=== PATIENT | female | born 1995 | race Caucasian/White ===

== ENCOUNTER 2017-11-24 22:55 | Emergency (ER) | payer MEDICAID ==
[2017-11-24 23:04] VITALS: RESP 16; TEMP 98.1; O2SAT 94
--- NOTE | 2017-11-24 23:05 | EDPHY ---
H & P Stated Complaint: L 5TH DIGIT LAC Time Seen by Provider: 11/24/17 23:04 HPI/ROS: HPI CHIEF COMPLAINT: Left hand laceration HISTORY OF PRESENT ILLNESS: Patient very pleasant 22-year-old female she is otherwise healthy with no significant medical history presents emergency room with a left hand laceration. 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 She sustained a 4 cm horizontal laceration at the base of the 5th digit palmar side on her left hand. No arterial injury. No bony involvement. No tendon involvement. Past Medical History: No significant medical history Past Surgical History: No significant surgical history Social History: Denies drugs alcohol tobacco daily. [employer] student. 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 Family History: Noncontributory ROS REVIEW OF SYSTEMS: A comprehensive 10 point review of systems is otherwise negative aside from elements mentioned in the history of present illness. Exam Constitutional appears well nontoxic no acute distress, triage nursing summary reviewed, vital signs reviewed, awake/alert. Eyes normal conjunctivae and sclera, EOMI, PERRLA. HENT normal inspection, atraumatic, moist mucus membranes, no epistaxis, neck supple/ no meningismus, no raccoon eyes. Respiratory clear to auscultation bilaterally, normal breath sounds, no respiratory distress, no wheezing. Cardiovascular rate normal, regular rhythm, no murmur, no edema, distal pulses normal. Gastrointestinal soft, non-tender, no rebound, no guarding, normal bowel sounds, no distension, no pulsatile mass. Genitourinary no CVA tenderness. Musculoskeletal no midline vertebral tenderness, full range of motion, no calf swelling, no tenderness of extremities, no meningismus, good pulses, neurovascularly intact. Skin left hand: Neurovascular intact with good distal pulse. Full range of motion. At the base the left 5th digit palmar side there is a 4 cm horizontal laceration. No arterial injury. No tendon involvement. Full function of the left 5th digit. Full extension and flexion. Good cap refill. There was no foreign body visualized no glass visualized. The wound was copiously explored and irrigated and cleaned. Neurologic awake, alert and oriented x 3, AAOx3, moves all 4 extremities equally, motor intact, sensory intact, CN II-XII intact, normal cerebellar, normal vision, normal speech. Psychiatric normal mood/affect. Heme/Lymph/Immune no lymphadenopathy. Differential Diagnosis: Includes but is not limited to in a particular order hand laceration, soft tissue injury, wound injury, retained foreign body, bony abnormality, tendon abnormality, arterial injury Medical Decision Making: Plan for this patient copiously irrigated and explored the wound for foreign bodies, and then close and repair the wound under sterile conditions. Re-evaluation: Laceration Repair Procedure: Verbal Consent was obtained, Under sterile conditions, The patient had lidocaine without epinephrine used approximately 4ccs to local anesthetize the left hand palmar side, base of 5th digit 4CM Laceration. The wound was copiously irrigated with sterile fluid, the wound was explored for foreign bodies there were none visualized, the wound was explored with a sterile glove to the base. There are no deep structures involved, including no arterial injury. FIVE 6.O PROLENE interrupted Sutures were placed in this patient's laceration. He had good close approximation of the wound edges. He Tolerated this well. 2318: Patient understands have sutures out in 12-14 days. Keep the wound clean , dry, protected and intact. Patient be placed in a finger splint for comfort and immobilization to make sure that the wound heals. - Personal History LMP (Females 10-55): Irregular Current Tetanus Diphtheria and Acellular Pertussis (TDAP): Yes - Medical/Surgical History Hx Asthma: No Hx Chronic Respiratory Disease: No Hx Diabetes: No Hx Cardiac Disease: No Hx Renal Disease: No Hx Cirrhosis: No Hx Alcoholism: No Hx HIV/AIDS: No Hx Splenectomy or Spleen Trauma: No Other PMH: ADHD - Social History Smoking Status: Light smoker Constitutional: Initial Vital Signs Temperature (C) 36.7 C 11/24/17 23:01 Heart Rate 120 H 11/24/17 23:01 Respiratory Rate 16 11/24/17 23:01 Blood Pressure 126/106 H 11/24/17 23:01 O2 Sat (%) 94 11/24/17 23:01 O2 Delivery Mode Room Air Allergies/Adverse Reactions: penicillin Allergy (Verified 04/10/15 04:27) Home Medications: Medication Instructions Recorded NK [No Known Home Meds] 04/10/15 Departure - Departure Disposition: Home, Routine, Self-Care Clinical Impression: Hand laceration Qualifiers: Encounter type: initial encounter Foreign body presence: without foreign body Laterality: left Qualified Code(s): S61.412A - Laceration without foreign body of left hand, initial encounter Condition: Good Instructions: Laceration (ED) Additional Instructions: 1. Sutures need to be removed in 12-14 days. 2. Watch for signs of infection. This includes redness, swelling, pain, discharge 3. Stay in her splint for comfort for the next week. Referrals: NONE *PRIMARY CARE P,. [Primary Care Provider] - As per Instructions
[2017-11-24 23:28] VITALS: BP 118/90; PULSE 108
== END 2017-11-24 23:43 | disposition home or self-care (01) ==
PROC: 0HQGXZZ Repair Left Hand Skin, External Approach (ICD-10-PCS; principal; 2017-11-24)
DX: S61.412A Laceration without foreign body of left hand, initial encounter (principal); F17.200 Nicotine dependence, unspecified, uncomplicated; W25.XXXA Contact with sharp glass, initial encounter
CPT/HCPCS: L3925